=== PATIENT | male | born 1960 | race Caucasian/White ===

== ENCOUNTER → 2016-09-01 | Outpatient (CLI) | payer BC ==
--- NOTE | 2016-09-02 07:34 | XR ---
EXAMINATION TYPE: XR abdomen 2V DATE OF EXAM: 09/01/2016 1:28 PM CLINICAL HISTORY: Diarrhea and abdominal pain for one week. TECHNIQUE: Supine and upright views of the abdomen are obtained. COMPARISON: CT abdomen and pelvis January 20, 2015 FINDINGS: Scattered gas is seen in non-distended small bowel loops. Gas and fecal material is seen in non-distended colon. Scattered pelvic phleboliths are redemonstrated. Cholecystectomy clips are ag ain seen. There is no pneumoperitoneum identified. Lung bases are clear. Visualized osseous structure s are intact. IMPRESSION: Overall nonobstructive bowel gas pattern.
== END | disposition home or self-care (01) ==
LOC: RADXRYALE 11:19
PROVIDERS: ATTEND Physician Assistant Medical
DX: R19.7 Diarrhea, unspecified (principal); R11.0 Nausea
CPT/HCPCS: 74020

== ENCOUNTER → 2018-06-28 | Outpatient (CLI) | payer MEDICARE ==
--- NOTE | 2018-06-28 11:43 | US ---
EXAMINATION TYPE: US scrotum with doppler. TECHNIQUE: Grayscale and color Doppler Duplex imaging performed of the scrotum. DATE OF EXAM: 06/28/2018 COMPARISON: 11/26/2014 CLINICAL HISTORY: 58-year-old male [id number] LT TESTICULAR PAIN. Left testicle pain x 4 years. FINDINGS: EXAM MEASUREMENTS: TESTICLES: Right Testicle: 4.3 x 2.8 x 2.2 cm Left Testicle: 3.9 x 2.4 x 2.1 cm EPIDIDYMIS HEAD: Right Epididymis: 1.5 cm with a 6 mm cyst within Left Epididymis: 1.1 cm Doppler performed to assess for testicular vascularity; good bilateral color flow and waveforms are s een. There is no evidence of testicular torsion. Presence of hydroceles: mild bilaterally Presence of varicoceles: Yes, small on the left IMPRESSION: 1. No sonographic evidence for testicular torsion or epididymoorchitis. 2. Small bilateral hydroceles and a small varicocele on the left.
== END | disposition home or self-care (01) ==
LOC: RADUSWWP 10:34
PROVIDERS: ATTEND Family Medicine
DX: N43.3 Hydrocele, unspecified (principal); I86.1 Scrotal varices
CPT/HCPCS: 76870; 93975

== ENCOUNTER → 2019-02-20 | Outpatient (CLI) | payer MEDICARE ==
--- NOTE | 2019-02-20 14:39 | XR ---
EXAMINATION TYPE: XR knee complete RT DATE OF EXAM: 02/20/2019 CLINICAL HISTORY: Intermittent chronic right knee pain with no known injury. TECHNIQUE: Three views of the right knee are obtained. COMPARISON: None. FINDINGS: There is no acute fracture/dislocation evident in right knee. The tri-compartment joint s paces appear aligned with small marginal osteophytes of all 3 compartments and mild medial compartmen t joint space narrowing. And very small suprapatellar joint effusion. The overlying soft tissue appea rs unremarkable. Extensor mechanism appears intact radiographically IMPRESSION: There is no acute fracture or dislocation in the right knee. Mild tricompartmental arthr opathy and small suprapatellar joint effusion.
== END | disposition home or self-care (01) ==
LOC: RADXRYALE 13:54
PROVIDERS: ATTEND Physician Assistant Medical
DX: M17.11 Unilateral primary osteoarthritis, right knee (principal)

== ENCOUNTER 2019-06-13 02:58 | Emergency (ER) | payer MEDICARE ==
[2019-06-13 03:09] VITALS: RESP 18; TEMP 97.7
[2019-06-13] MEDS ORDERED: FAMOTIDINE 20 MG/2 ML VIAL IV STA (03:28)
[2019-06-13] MEDS ORDERED: methylPREDNISolone SOD SUCCI 125 MG/2 ML VIAL IV STA (03:28)
[2019-06-13] MEDS ORDERED: diphenhydrAMINE 50 MG/ML 1 ML VIAL IVP STA (03:28)
[2019-06-13] MEDS ORDERED: ONDANSETRON 4 MG/2 ML VIAL IVP STA (03:29)
[2019-06-13] MEDS ORDERED: MORPHINE SULFATE 4 MG/ML SYRINGE IVP STA (03:29)
[2019-06-13 03:40] LABS: Basophils # (A) 0.1 k/uL (0-0.2); Basophils % (A) 1 %; Eosinophils # (A) 0.3 k/uL (0-0.7); Eosinophils % (A) 2 %; HCT 46.2 % (39.0-53.0); HGB 15.2 gm/dL (13.0-17.5); Lymphocytes # (A) 0.7 k/uL (1.0-4.8); Lymphocytes % (A) 6 %; MCH 29.4 pg (25.0-35.0); MCHC 32.8 g/dL (31.0-37.0); MCV 89.5 fL (80.0-100.0); Monocytes # (A) 0.5 k/uL (0-1.0); Monocytes % (A) 4 %; Neutrophils # (A) 10.3 k/uL (1.3-7.7); Neutrophils % (A) 86 %; Platelet Count 187 k/uL (150-450); RBC 5.16 m/uL (4.30-5.90); RDW 13.1 % (11.5-15.5); WBC 11.9 k/uL (3.8-10.6)
--- NOTE | 2019-06-13 03:44 | ED ---
General Adult HPI - General Chief complaint: Abdominal Pain Stated complaint: abd pain Time Seen by Provider: 06/13/19 03:16 Source: patient, RN notes reviewed Mode of arrival: ambulatory Limitations: no limitations - History of Present Illness Initial comments: 59-year-old male presents for evaluation of lower abdominal pain. Patient has previous history of diverticulitis and perforated bowel status post colostomy. He is subsequently had reversal of his colostomy. He presents today with increased number of bowel movements as well as nausea and vomiting. Several episodes of vomiting prior to arrival. Reports subjective fever and chills. Pain predominantly in the left lower quadrant. Patient is concern for recurrent diverticulitis. Denies chest pain or dyspnea. Does report some abdominal distention. - Related Data Home Medications Medication Instructions Recorded Confirmed Omeprazole [PriLOSEC] 40 mg PO DAILY 06/17/14 01/20/15 Aspirin EC [Ecotrin Low Dose] 81 mg PO DAILY 09/27/14 01/20/15 Metoprolol Tartrate [Lopressor] 12.5 mg PO BID 10/28/14 01/20/15 Ramipril [Altace] 10 mg PO DAILY 01/20/15 01/20/15 Previous Rx's Medication Instructions Recorded Ciprofloxacin HCl [Cipro] 500 mg PO Q12HR #14 tablet 01/20/15 metroNIDAZOLE [Flagyl] 500 mg PO BID #20 tab 01/20/15 Levofloxacin [Levaquin] 500 mg PO DAILY 3 Days #7 tab 06/13/19 metroNIDAZOLE [Flagyl] 500 mg PO TID #21 tab 06/13/19 Allergies Allergy/AdvReac Type Severity Reaction Status Date / Time Iodinated Contrast Media Allergy Rash/Hives Verified 01/20/15 10:43 [Iodinated Contrast Media - FROM CAT IV Dye] SCAN CONTRAST. sulfamethoxazole Allergy Swelling Verified 01/20/15 10:43 [From Bactrim] trimethoprim [From Bactrim] Allergy Swelling Verified 01/20/15 10:43 Review of Systems ROS Statement: Those systems with pertinent positive or pertinent negative responses have been documented in the HPI. ROS Other: All systems not noted in ROS Statement are negative. Past Medical History Past Medical History: CVA/TIA, GERD/Reflux, Hypertension, Syncope Additional Past Medical History / Comment(s): PICC line, peforated divericulitis with abdominal abscess, sepsis, arthritis. History of Any Multi-Drug Resistant Organisms: None Reported Past Surgical History: Cholecystectomy Additional Past Surgical History / Comment(s): sigmoid colectomy with colostomy- 10/24/14 colostomy reversal, anal fissure repair, nasal polyps removed, colon polyps, diverticultis Past Anesthesia/Blood Transfusion Reactions: Motion Sickness Additional Past Anesthesia/Blood Transfusion Reaction / Comment(s): SPINAL HEADACHE IN PAST Past Psychological History: No Psychological Hx Reported Smoking Status: Former smoker Past Alcohol Use History: None Reported Past Drug Use History: None Reported - Past Family History Father Family Medical History: Hyperlipidemia, Myocardial Infarction ([place]) Additional Family Medical History / Comment(s): 5 VESSEL [employer]PASS Mother Family Medical History: Hypertension Additional Family Medical History / Comment(s): OBESITY Brother(s) Family Medical History: Hypertension Additional Family Medical History / Comment(s): cardiac sx General Exam Limitations: no limitations General appearance: alert, in no apparent distress Head exam: Present: atraumatic, normocephalic Eye exam: Present: normal appearance, PERRL ENT exam: Present: mucous membranes dry Neck exam: Present: normal inspection. Absent: tenderness, meningismus Respiratory exam: Present: normal lung sounds bilaterally. Absent: respiratory distress, wheezes Cardiovascular Exam: Present: regular rate, normal rhythm GI/Abdominal exam: Present: soft, distended, tenderness (bilateral lower abdominal tenderness to palpation). Absent: guarding, rebound Extremities exam: Present: normal inspection, normal capillary refill. Absent: pedal edema Neurological exam: Present: alert, oriented X3, CN II-XII intact. Absent: motor sensory deficit Psychiatric exam: Present: normal affect, normal mood Skin exam: Present: warm, dry, intact. Absent: cyanosis, diaphoretic Course Vital Signs 06/13/19 03:05 Temperature 97.7 F Pulse Rate 89 Respiratory 18 Rate Blood Pressure 125/86 O2 Sat by Pulse 98 Oximetry Medical Decision Making - Medical Decision Making 59-year-old male presenting with left lower quadrant abdominal pain, concern for diverticulitis. CT is performed which shows diverticulitis with no abscess, no intraperitoneal free air, no small bowel obstruction. He has a mildly elevated white blood cell count 11.0, normal CMP, normal lactic acid. Given the patient's previous surgical history, occasions with diverticulitis I did offer observation for IV antibiotics, patient declines she prefers oral antibiotics and will return if symptoms worsen including the development of fever or worsening pain. He is given a dose of antibiotics in the emergency department. He will have prescription for Levaquin and Flagyl and he will follow-up with both his primary care physician and his surgeon. - Lab Data Result diagrams: 06/13/19 03:20 06/13/19 03:20 Lab Results 06/13/19 06/13/19 06/13/19 Range/Units 03:20 03:20 03:20 WBC 11.9 H (3.8-10.6) k/uL RBC 5.16 (4.30-5.90) m/uL Hgb 15.2 (13.0-17.5) gm/dL Hct 46.2 (39.0-53.0) % MCV 89.5 (80.0-100.0) fL MCH 29.4 (25.0-35.0) pg MCHC 32.8 (31.0-37.0) g/dL RDW 13.1 (11.5-15.5) % Plt Count 187 (150-450) k/uL Neutrophils % 86 % Lymphocytes % 6 % Monocytes % 4 % Eosinophils % 2 % Basophils % 1 % Neutrophils # 10.3 H (1.3-7.7) k/uL Lymphocytes # 0.7 L (1.0-4.8) k/uL Monocytes # 0.5 (0-1.0) k/uL Eosinophils # 0.3 (0-0.7) k/uL Basophils # 0.1 (0-0.2) k/uL PT (9.0-12.0) sec INR (<1.2) APTT (22.0-30.0) sec Sodium 136 L (137-145) mmol/L Potassium 4.4 (3.5-5.1) mmol/L Chloride 103 (98-107) mmol/L Carbon Dioxide 24 (22-30) mmol/L Anion Gap 9 mmol/L BUN 12 (9-20) mg/dL Creatinine 1.20 (0.66-1.25) mg/dL Est GFR (CKD-EPI)AfAm 76 (>60 ml/min/1.73 sqM) Est GFR (CKD-EPI)NonAf 66 (>60 ml/min/1.73 sqM) Glucose 132 H (74-99) mg/dL Plasma Lactic Acid Juanito 1.0 (0.7-2.0) mmol/L Calcium 9.6 (8.4-10.2) mg/dL Total Bilirubin 1.1 (0.2-1.3) mg/dL AST 42 (17-59) U/L ALT 57 H (4-49) U/L Alkaline Phosphatase 102 (38-126) U/L Total Protein 7.5 (6.3-8.2) g/dL Albumin 4.5 (3.5-5.0) g/dL Amylase 50 (30-110) U/L Lipase 60 (23-300) U/L Urine Color Urine Appearance (Clear) Urine pH (5.0-8.0) Ur Specific [place] (1.001-1.035) Urine Protein (Negative) Urine Glucose (UA) (Negative) Urine Ketones (Negative) Urine Blood (Negative) Urine Nitrite (Negative) Urine Bilirubin (Negative) Urine Urobilinogen (<2.0) mg/dL Ur Leukocyte Esterase (Negative) 06/13/19 06/13/19 Range/Units 03:20 03:38 WBC (3.8-10.6) k/uL RBC (4.30-5.90) m/uL Hgb (13.0-17.5) gm/dL Hct (39.0-53.0) % MCV (80.0-100.0) fL MCH (25.0-35.0) pg MCHC (31.0-37.0) g/dL RDW (11.5-15.5) % Plt Count (150-450) k/uL Neutrophils % % Lymphocytes % % Monocytes % % Eosinophils % % Basophils % % Neutrophils # (1.3-7.7) k/uL Lymphocytes # (1.0-4.8) k/uL Monocytes # (0-1.0) k/uL Eosinophils # (0-0.7) k/uL Basophils # (0-0.2) k/uL PT 9.9 (9.0-12.0) sec INR 0.9 (<1.2) APTT 25.1 (22.0-30.0) sec Sodium (137-145) mmol/L Potassium (3.5-5.1) mmol/L Chloride (98-107) mmol/L Carbon Dioxide (22-30) mmol/L Anion Gap mmol/L BUN (9-20) mg/dL Creatinine (0.66-1.25) mg/dL Est GFR (CKD-EPI)AfAm (>60 ml/min/1.73 sqM) Est GFR (CKD-EPI)NonAf (>60 ml/min/1.73 sqM) Glucose (74-99) mg/dL Plasma Lactic Acid [place] (0.7-2.0) mmol/L Calcium (8.4-10.2) mg/dL Total Bilirubin (0.2-1.3) mg/dL AST (17-59) U/L ALT (4-49) U/L Alkaline Phosphatase (38-126) U/L Total Protein (6.3-8.2) g/dL Albumin (3.5-5.0) g/dL Amylase (30-110) U/L Lipase (23-300) U/L Urine Color Yellow Urine Appearance Clear (Clear) Urine pH 5.5 (5.0-8.0) Ur Specific [place] 1.025 (1.001-1.035) Urine Protein Trace H (Negative) Urine Glucose (UA) Negative (Negative) Urine Ketones 1+ H (Negative) Urine Blood Negative (Negative) Urine Nitrite Negative (Negative) Urine Bilirubin Negative (Negative) Urine Urobilinogen <2.0 (<2.0) mg/dL Ur Leukocyte Esterase Negative (Negative) Disposition Clinical Impression: Diverticulitis Disposition: HOME SELF-CARE Condition: Good Instructions (If sedation given, give patient instructions): Diverticulitis (ED) Prescriptions: metroNIDAZOLE [Flagyl] 500 mg PO TID #21 tab Levofloxacin [Levaquin] 500 mg PO DAILY 3 Days #7 tab Is patient prescribed a controlled substance at d/c from ED?: No Referrals: Robert Goldstein DO [Primary Care Provider] - 1-2 days Chanel Harper MD [STAFF PHYSICIAN] - 1-2 days Time of Disposition: 04:24
[2019-06-13 03:45] LABS: Appearance,Urine Clear (Clear); Bilirubin,Urine Negative (Negative); Blood,Urine Negative (Negative); Color,Urine Yellow; Glucose,Urine (UA) Negative (Negative); Ketones,Urine 1+ (Negative); Leukocyte Esterase,Urine Negative (Negative); Nitrite,Urine Negative (Negative); PH, Urine 5.5 (5.0-8.0); Protein,Urine Trace (Negative); Specific Gravity,Urine 1.025 (1.001-1.035); Urobilinogen,Urine <2.0 mg/dL (<2.0)
[2019-06-13 03:49] LABS: Albumin 4.5 g/dL (3.5-5.0); Calcium 9.6 mg/dL (8.4-10.2); Potassium 4.4 mmol/L (3.5-5.1); Total Bilirubin 1.1 mg/dL (0.2-1.3); Total Protein 7.5 g/dL (6.3-8.2)
[2019-06-13 03:51] LABS: INR 0.9 (<1.2); Partial Thromboplastin Time 25.1 sec (22.0-30.0); Prothrombin Time 9.9 sec (9.0-12.0)
--- NOTE | 2019-06-13 04:13 | CT ---
EXAMINATION TYPE: CT abdomen pelvis w con DATE OF EXAM: 06/13/2019 COMPARISON: 01/20/2015 HISTORY: Patient presents with abdominal pain CT DLP: 1416.8 mGycm Automated exposure control for dose reduction was used. CONTRAST: Performed with IV Contrast, patient injected with 100mL mL of Isovue 300. Lung bases are clear. There is no pleural effusion. Heart size is normal. There is no pericardial eff usion. Liver spleen pancreas appear normal. Bile ducts are not dilated. There are clips from cholecys tectomy. Stomach appears normal. There is no adrenal mass. Kidneys show satisfactory contrast opacification. There is no hydronephrosi s. Ureters are not dilated. Bladder distends smoothly. There is prostatic calcification. There is no inguinal hernia. There is no free fluid in the pelvis. There is moderate fat stranding and mild wall thickening of the proximal sigmoid colon. There are sig moid diverticula. Appendix appears normal. There is no sign of a bowel obstruction. There is no free air. There is no ascites. Lumbar spine is intact. Bony pelvis is intact. IMPRESSION: There is evidence of diverticulitis of the proximal sigmoid colon that is a change compared to old ex am. No abscess.
[2019-06-13] MEDS ORDERED: metroNIDAZOLE-NS PMX 500 MG in SALINE 1 100ML.BAG IVPB STA (04:21)
[2019-06-13] MEDS ORDERED: LEVOFLOXACIN 500MG-D5W PMX 500 MG in DEXTROSE/WATER 1 100ML.BAG IVPB STA (04:21)
[2019-06-13] MEDS ORDERED: metroNIDAZOLE 500 MG TAB PO STA (04:26)
[2019-06-13] MEDS ORDERED: LEVOFLOXACIN 500 MG TAB PO STA (04:26)
[2019-06-13 04:40] VITALS: BP 119/81; PULSE 76
== END 2019-06-13 04:40 | disposition home or self-care (01) ==
LOC: EC 02:58
DX: K57.32 Diverticulitis of large intestine without perforation or abscess without bleeding (principal); K21.9 Gastro-esophageal reflux disease without esophagitis; I10 Essential (primary) hypertension; Z79.82 Long term (current) use of aspirin; Z79.899 Other long term (current) drug therapy; Z88.1 Allergy status to other antibiotic agents; Z88.2 Allergy status to sulfonamides; Z91.041 Radiographic dye allergy status; Z87.891 Personal history of nicotine dependence; Z86.73 Personal history of transient ischemic attack (TIA), and cerebral infarction without residual deficits; Z90.49 Acquired absence of other specified parts of digestive tract
CPT/HCPCS: 36415; 80053; 82150; 83605; 83690; 85025; 85610; 85730; 81003; 74177; 99284; 96374; 96375 ×4; J2270; J1200; J2930; J2405; Q9967

== ENCOUNTER 2020-09-03 12:35 | Emergency (ER) | payer MEDICARE ==
[2020-09-03 12:46] VITALS: BP 135/103; PULSE 94; RESP 16; TEMP 98.1
[2020-09-03 13:21] LABS: Basophils # (A) 0.1 k/uL (0-0.2); Basophils % (A) 1 %; Eosinophils # (A) 0.2 k/uL (0-0.7); Eosinophils % (A) 2 %; HCT 44.8 % (39.0-53.0); HGB 15.6 gm/dL (13.0-17.5); Lymphocytes % (A) 15 %; MCH 30.2 pg (25.0-35.0); MCHC 34.8 g/dL (31.0-37.0); MCV 86.7 fL (80.0-100.0); Mean Platelet Volume 9.2; Monocytes # (A) 0.4 k/uL (0-1.0); Monocytes % (A) 7 %; Neutrophils # (A) 4.9 k/uL (1.3-7.7); Neutrophils % (A) 75 %; Platelet Count 189 k/uL (150-450); RBC 5.17 m/uL (4.30-5.90); WBC 6.6 k/uL (3.8-10.6)
[2020-09-03 13:35] LABS: Albumin 4.3 g/dL (3.5-5.0); Calcium 9.4 mg/dL (8.4-10.2); Total Bilirubin 0.9 mg/dL (0.2-1.3); Total Protein 7.1 g/dL (6.3-8.2)
[2020-09-03 13:52] LABS: INR 0.9 (<1.2); Partial Thromboplastin Time 24.5 sec (22.0-30.0); Prothrombin Time 9.9 sec (9.0-12.0)
== END 2020-09-03 14:16 | disposition left against medical advice (07) ==
LOC: EC 12:35
DX: R07.9 Chest pain, unspecified (principal); R42 Dizziness and giddiness; Z53.21 Procedure and treatment not carried out due to patient leaving prior to being seen by health care provider
CPT/HCPCS: 36415; 80053; 83735; 84484; 85025; 85610; 85730; 93005; 99499

== ENCOUNTER 2021-09-04 14:30 | Emergency (ER) | payer MEDICARE ==
[2021-09-04 14:42] VITALS: BP 166/96; PULSE 88; RESP 20; TEMP 98
[2021-09-04 15:46] LABS: Appearance,Urine Clear (Clear); Basophils % (A) 1 %; Bilirubin,Urine Negative (Negative); Blood,Urine Negative (Negative); Color,Urine Light Yellow; Eosinophils # (A) 0.3 k/uL (0-0.7); Eosinophils % (A) 4 %; Glucose,Urine (UA) Negative (Negative); HCT 46.2 % (39.0-53.0); HGB 15.5 gm/dL (13.0-17.5); Ketones,Urine Negative (Negative); Leukocyte Esterase,Urine Negative (Negative); Lymphocytes # (A) 1.6 k/uL (1.0-4.8); Lymphocytes % (A) 25 %; MCH 30.3 pg (25.0-35.0); MCHC 33.6 g/dL (31.0-37.0); MCV 90.2 fL (80.0-100.0); Monocytes # (A) 0.4 k/uL (0-1.0); Monocytes % (A) 6 %; Neutrophils % (A) 63 %; Nitrite,Urine Negative (Negative); Platelet Count 188 k/uL (150-450); Protein,Urine Negative (Negative); RBC 5.12 m/uL (4.30-5.90); RDW 13.1 % (11.5-15.5); Specific Gravity,Urine 1.013 (1.001-1.035); Urobilinogen,Urine <2.0 mg/dL (<2.0); WBC 6.4 k/uL (3.8-10.6)
[2021-09-04 16:11] LABS: Calcium 9.1 mg/dL (8.4-10.2); Potassium 4.1 mmol/L (3.5-5.1); Total Bilirubin 0.5 mg/dL (0.2-1.3); Total Protein 6.8 g/dL (6.3-8.2)
--- NOTE | 2021-09-04 16:13 | ED ---
Abdominal Pain HPI - General Chief Complaint: Abdominal Pain Stated Complaint: Lower Abdominal Pain Time Seen by Provider: 09/04/21 14:58 Source: patient, RN notes reviewed Mode of arrival: ambulatory Limitations: no limitations - History of Present Illness Initial Comments: This is a 61-year-old male who presents to the emergency department with abdomin al pain. States that he woke up with abdominal pain in the right lower quadrant. He has been unable to get comfortable, states that the pain is getting worse, and whenever he bumps into something or drives over a bump, the pain gets worse. Denies any migration or radiation of symptoms. He has not found any interventions that make the pain better. Denies any dysuria, hematuria, changes in bowel habits, nausea, vomiting, fevers, or chills. MD Complaint: abdominal pain Onset/Timin -: days(s) Location: RLQ Radiation: none Migration to: no migration Quality: stabbing, sharp Consistency: constant Improves With: nothing Worsens With: movement - Related Data Home Medications Medication Instructions Recorded Confirmed Ramipril [Altace] 10 mg PO DAILY 01/20/15 09/04/21 Allergies Allergy/AdvReac Type Severity Reaction Status Date / Time Iodinated Contrast Media Allergy Rash/Hives Verified 09/04/21 17:33 [Iodinated Contrast Media - & Fever IV Dye] sulfamethoxazole Allergy Rash/Hives Verified 09/04/21 17:33 [From Bactrim] trimethoprim [From Bactrim] Allergy Rash/Hives Verified 09/04/21 17:33 Review of Systems ROS Statement: Those systems with pertinent positive or pertinent negative responses have been documented in the HPI. ROS Other: All systems not noted in ROS Statement are negative. Constitutional: Denies: fever, chills ENT: Denies: ear pain, throat pain Respiratory: Denies: cough, dyspnea Cardiovascular: Denies: chest pain, palpitations Endocrine: Denies: fatigue Gastrointestinal: Reports: abdominal pain. Denies: nausea, vomiting, diarrhea, hematemesis, melena, hematochezia Genitourinary: Denies: urgency, dysuria, frequency, hematuria Musculoskeletal: Denies: back pain Skin: Denies: rash, lesions Neurological: Denies: headache Past Medical History Past Medical History: CVA/TIA, GERD/Reflux, Hypertension, Syncope Additional Past Medical History / Comment(s): PICC line, peforated divericulitis with abdominal abscess, sepsis, arthritis. History of Any Multi-Drug Resistant Organisms: None Reported Past Surgical History: Cholecystectomy Additional Past Surgical History / Comment(s): sigmoid colectomy with colostomy- 10/24/14 colostomy reversal, anal fissure repair, nasal polyps removed, colon polyps, diverticultis Past Anesthesia/Blood Transfusion Reactions: Motion Sickness Additional Past Anesthesia/Blood Transfusion Reaction / Comment(s): SPINAL HEADACHE IN PAST Past Psychological History: No Psychological Hx Reported Smoking Status: Never smoker Past Alcohol Use History: None Reported Past Drug Use History: Marijuana - Past Family History Father Family Medical History: Hyperlipidemia, Myocardial Infarction ([place]) Additional Family Medical History / Comment(s): 5 VESSEL [employer]PASS Mother Family Medical History: Hypertension Additional Family Medical History / Comment(s): OBESITY Brother(s) Family Medical History: Hypertension Additional Family Medical History / Comment(s): cardiac sx General Exam Limitations: no limitations General appearance: alert, in no apparent distress Head exam: Present: atraumatic, normocephalic, normal inspection Respiratory exam: Present: normal lung sounds bilaterally. Absent: respiratory distress, wheezes, rales, rhonchi, stridor Cardiovascular Exam: Present: regular rate, normal rhythm, normal heart sounds. Absent: systolic murmur, diastolic murmur, rubs, gallop, clicks GI/Abdominal exam: Present: soft, tenderness (RLQ), guarding, normal bowel sounds. Absent: distended, rebound, rigid, organomegaly, mass Neurological exam: Present: alert, oriented X3, CN II-XII intact Psychiatric exam: Present: normal affect, normal mood Skin exam: Present: warm, dry, intact, normal color. Absent: rash Course Vital Signs 09/04/21 14:40 Temperature 98.0 F Pulse Rate 88 Respiratory 20 Rate Blood Pressure 166/96 O2 Sat by Pulse 98 Oximetry Medical Decision Making - Medical Decision Making This is a 61-year-old male who presents to the emergency department with abdominal pain. Given the exquisite tenderness, history of bowel pathology, and sudden onset tenderness, will proceed with imaging and labs for further evalu ation. Lab work and urinalysis were unremarkable with no sign of infection. Computed tomography scan also revealed no acute pathology. Discussed that this might be musculoskeletal in nature, and it should resolve on its own. Workup does not reveal any etiologies that require emergent intervention on our part. Advised Tylenol for pain relief. Return precautions reviewed in depth, the patient is instructed to return to the emergency department if symptoms worsen or do not improve. Patient verbalized understanding. This case was discussed in detail with the attending ED physician. Presentation, findings, and treatment plan discussed in detail as well. - Lab Data Result diagrams: 09/04/21 15:26 09/04/21 15: Lab Results 09/04/21 09/04/21 09/04/21 Range/Units 15:26 15: 15:26 WBC 6.4 (3.8-10.6) k/uL RBC 5.12 (4.30-5.90) m/uL Hgb 15.5 (13.0-17.5) gm/dL Hct 46.2 (39.0-53.0) % MCV 90.2 (80.0-100.0) fL MCH 30.3 (25.0-35.0) pg MCHC 33.6 (31.0-37.0) g/dL RDW 13.1 (11.5-15.5) % Plt Count 188 (150-450) k/uL MPV 9.0 Neutrophils % 63 % Lymphocytes % 25 % Monocytes % 6 % Eosinophils % 4 % Basophils % 1 % Neutrophils # 4.0 (1.3-7.7) k/uL Lymphocytes # 1.6 (1.0-4.8) k/uL Monocytes # 0.4 (0-1.0) k/uL Eosinophils # 0.3 (0-0.7) k/uL Basophils # 0.0 (0-0.2) k/uL Sodium 138 (137-145) mmol/L Potassium 4.1 (3.5-5.1) mmol/L Chloride 106 (98-107) mmol/L Carbon Dioxide 25 (22-30) mmol/L Anion Gap 7 mmol/L BUN 19 (9-20) mg/dL Creatinine 1.15 (0.66-1.25) mg/dL Est GFR (CKD-EPI)AfAm 80 (>60 ml/min/1.73 sqM) Est GFR (CKD-EPI)NonAf 69 (>60 ml/min/1.73 sqM) Glucose 93 (74-99) mg/dL Calcium 9.1 (8.4-10.2) mg/dL Total Bilirubin 0.5 (0.2-1.3) mg/dL AST 27 (17-59) U/L ALT 35 (4-49) U/L Alkaline Phosphatase 65 (38-126) U/L Total Protein 6.8 (6.3-8.2) g/dL Albumin 4.0 (3.5-5.0) g/dL Amylase 73 (30-110) U/L Lipase 54 (23-300) U/L Urine Color Light Yellow Urine Appearance Clear (Clear) Urine pH 7.0 (5.0-8.0) Ur Specific [place] 1.013 (1.001-1.035) Urine Protein Negative (Negative) Urine Glucose (UA) Negative (Negative) Urine Ketones Negative (Negative) Urine Blood Negative (Negative) Urine Nitrite Negative (Negative) Urine Bilirubin Negative (Negative) Urine Urobilinogen <2.0 (<2.0) mg/dL Ur Leukocyte Esterase Negative (Negative) - Radiology Data Radiology results: report reviewed, image reviewed Disposition Clinical Impression: RLQ abdominal pain Disposition: HOME SELF-CARE Instructions (If sedation given, give patient instructions): Abdominal Pain (ED) Additional Instructions: Return to the emergency department if your symptoms worsen or you develop symptoms including but not limited to nausea/vomiting, fevers/chills, or changes in bowel habits. Follow-up with primary care physician in 1 to 2 days. Is patient prescribed a controlled substance at d/c from ED?: No Referrals: Robert Goldstein DO [Primary Care Provider] - 1-2 days
--- NOTE | 2021-09-04 16:39 | CT ---
EXAMINATION TYPE: CT abdomen pelvis wo con DATE OF EXAM: 09/04/2021 COMPARISON: CT dated 06/13/2019 HISTORY: Abdominal pain since this morning. CT DLP: 917.6 mGycm Automated exposure control for dose reduction was used. TECHNIQUE: Helical acquisition of images was performed from the lung bases through the pelvis. FINDINGS: LUNG BASES: Minimal left basal posterior pulmonary atelectasis. LIVER/GB: Tiny calcification in the left hepatic lobe, otherwise unremarkable liver. Previous cholecy stectomy. PANCREAS: No significant abnormality is seen. SPLEEN: No significant abnormality is seen. ADRENALS: No significant abnormality is seen. KIDNEYS: No significant abnormality is seen. FREE AIR: No free air is visualized RETROPERITONEAL ADENOPATHY: None visualized REPRODUCTIVE ORGANS: No significant abnormality is seen URINARY BLADDER: No significant abnormality is seen. PELVIC ADENOPATHY: None visualized. OSSEOUS STRUCTURES: L4-5 and L5-S1 facet osteoarthropathy. No aggressive bone lesion. BOWEL: Unremarkable stomach, duodenum and small bowel. Unremarkable colonic anastomosis in the pelvi s. Fatty infiltration of segments of the colon which could be related to chronic colitis. Uncomplicat ed colonic diverticulosis. No evidence of acute diverticulitis or acute colitis. Normal appendix. OTHER: Minimal arterial atherosclerotic calcifications. No sizable ascites. Left fat-containing ingui nal hernia. IMPRESSION: No definite acute abnormality seen in the abdomen or the pelvis. Incidental findings as described abo ve.
== END 2021-09-04 17:51 | disposition home or self-care (01) ==
LOC: EC 14:30
DX: R10.31 Right lower quadrant pain (principal); I10 Essential (primary) hypertension; K21.9 Gastro-esophageal reflux disease without esophagitis; F12.90 Cannabis use, unspecified, uncomplicated; Z79.899 Other long term (current) drug therapy
CPT/HCPCS: 36415; 74176; 80053; 81003; 82150; 83690; 85025; 99284

== ENCOUNTER 2021-12-31 20:27 | Emergency (ER) | payer MEDICARE ==
[2021-12-31] MEDS ORDERED: FLUORESCEIN STRIPS 1 MG STRIP RIGHT EYE ONE (21:33)
[2021-12-31] MEDS ORDERED: PROPARACAINE 0.5% OPHTH DROPS 15 ML BTL RIGHT EYE STA (21:33)
[2021-12-31 21:36] VITALS: BP 171/95; PULSE 75; RESP 18; TEMP 97.8
[2021-12-31] MEDS ORDERED: ERYTHROMYCIN 5 MG/GM OPHTH OINT 3.5 GM TUBE LEFT EYE STA (22:22)
--- NOTE | 2021-12-31 22:30 | ED ---
General Adult HPI - General Chief complaint: Eye Problems Stated complaint: Foreign object stuck on R eye Time Seen by Provider: 12/31/21 21:32 Source: patient, family, RN notes reviewed (FB in left eye) Mode of arrival: ambulatory - History of Present Illness Initial comments: 61-year-old male presents to the emergency department with complaints of metal foreign body in the left eye. Patient states he was working on his truck around 3 PM when a maribell of metal dropped in his eye over his shield and glasses. Patient states the irritation is constant. States he attempted to move the object at home without success. Does not wear contacts. No blurry vision. Tetanus shot is up to date. Denies any other injuries at this time. - Related Data Home Medications Medication Instructions Recorded Confirmed ramipriL [Altace] 10 mg PO DAILY 01/20/15 09/04/21 Previous Rx's Medication Instructions Recorded Ciprofloxacin Ophth Soln [Cipro 2 drops LEFT EYE Q6HR 3 Days #5 ml 12/31/21 0.3% Ophth Soln] Allergies Allergy/AdvReac Type Severity Reaction Status Date / Time Iodinated Contrast Media Allergy Rash/Hives Verified 12/31/21 21:36 [Iodinated Contrast Media - & Fever IV Dye] sulfamethoxazole Allergy Rash/Hives Verified 12/31/21 21:36 [From Bactrim] trimethoprim [From Bactrim] Allergy Rash/Hives Verified 12/31/21 21:36 Review of Systems ROS Statement: Those systems with pertinent positive or pertinent negative responses have been documented in the HPI. ROS Other: All systems not noted in ROS Statement are negative. Past Medical History Past Medical History: CVA/TIA, GERD/Reflux, Hypertension, Syncope Additional Past Medical History / Comment(s): PICC line, peforated divericulitis with abdominal abscess, sepsis, arthritis. History of Any Multi-Drug Resistant Organisms: None Reported Past Surgical History: Cholecystectomy Additional Past Surgical History / Comment(s): sigmoid colectomy with colostomy- 10/24/14 colostomy reversal, anal fissure repair, nasal polyps removed, colon polyps, diverticultis Past Anesthesia/Blood Transfusion Reactions: Motion Sickness Additional Past Anesthesia/Blood Transfusion Reaction / Comment(s): SPINAL HEADACHE IN PAST Past Psychological History: No Psychological Hx Reported Smoking Status: Never smoker Past Alcohol Use History: None Reported Past Drug Use History: Marijuana - Past Family History Father Family Medical History: Hyperlipidemia, Myocardial Infarction ([place]) Additional Family Medical History / Comment(s): 5 VESSEL [employer]PASS Mother Family Medical History: Hypertension Additional Family Medical History / Comment(s): OBESITY Brother(s) Family Medical History: Hypertension Additional Family Medical History / Comment(s): cardiac sx General Exam Limitations: no limitations (Pleasant, well-developed, well-nourished male in no acute distress. Initial temperature is 97.8, pulse 75, respirations 18, blood pressure 171/95, pulse ox 98% on room air.) General appearance: alert, in no apparent distress Head exam: Present: atraumatic, normocephalic, normal inspection Eye exam: Present: normal appearance, PERRL, EOMI, conjunctival injection. Absent: scleral icterus Expanded Eyelids: Normal Inspection: Bilateral Pupils: Regular, Round: Bilateral Sclera/Conjunctival: Normal Inspection: Right, Injection: Left IOP (R) in mmH IOP (L) in mmH Respiratory exam: Present: normal lung sounds bilaterally. Absent: respiratory distress, wheezes, rales, rhonchi, stridor Cardiovascular Exam: Present: regular rate, normal rhythm, normal heart sounds. Absent: systolic murmur, diastolic murmur, rubs, gallop, clicks GI/Abdominal exam: Present: soft, normal bowel sounds. Absent: distended, tenderness, guarding, rebound, rigid Neurological exam: Present: alert, oriented X3 Psychiatric exam: Present: normal affect, normal mood Course Vital Signs 12/31/21 21:31 Temperature 97.8 F Pulse Rate 75 Respiratory 18 Rate Blood Pressure 171/95 O2 Sat by Pulse 98 Oximetry Procedures - Forgein Body Removal Eye Site: Left Location in eye(s): 2 o'clock position Anesthetic Used: Proparacaine Eye Exam Technique: Batista Lamp, Fluorescein Foreign Body Suspected: Wood Forgein Body Removal Technique: Cotton Swab Remaining Debris: No Patient Tolerated: no complications Additional Comments: Left eye examined IOP measured Proparacaine instilled into the left eye. Tiny foreign body, suspected to be metal, removed. Reexamination reveals small corneal abrasion with no evidence of foreign body. Medical Decision Making - Medical Decision Making 61-year-old male with a past medical history of of hypertension, TIA and diverticulitis presents to the emergency department for removal of small metal foreign body in the left eye. Upon exam patient is well-appearing and in no acute distress. He has conjunctival injection of the left eye with foreign body visualized under magnification at the 2 o'clock position. Patient has no other injuries or complaints. Td up-to-date. IOP within normal limits bilaterally. No significant vision change. Eye irrigated. Foreign body successfully removed with cotton swab. Small abrasion noted to the cornea after removal. Erythromycin eye ointment applied. Patient is instructed to follow up with ophthalmology first thing in the morning. He is advised to the importance of this and verbalizes understanding. Return parameters discussed in detail. Attending: Rebel. Disposition Clinical Impression: Foreign body of left eye Disposition: HOME SELF-CARE Condition: Stable Instructions (If sedation given, give patient instructions): Eye Foreign Body (ED) Additional Instructions: Avoid rubbing your left eye. Apply antibiotic ointment/drops as we discussed. Expect there to be some ongoing irritation, tearing, and sensitivity to light. Call ophthalmology first thing in the morning to schedule a follow-up appointment to be seen as soon as possible. Return to the emergency department with any new, worsening, or concerning symptoms. Prescriptions: Ciprofloxacin Ophth Soln [Cipro 0.3% Ophth Soln] 2 drops LEFT EYE Q6HR 3 Days #5 ml Is patient prescribed a controlled substance at d/c from ED?: No Referrals: Robert Goldstein DO [Primary Care Provider] - 1-2 days Simeon Srinivasan MD [STAFF PHYSICIAN] - 1-2 days Time of Disposition: 22:30
== END 2021-12-31 23:01 | disposition home or self-care (01) ==
LOC: EC 20:27
DX: T15.92XA Foreign body on external eye, part unspecified, left eye, initial encounter (principal); I10 Essential (primary) hypertension; K21.9 Gastro-esophageal reflux disease without esophagitis; Z91.041 Radiographic dye allergy status; Z88.2 Allergy status to sulfonamides; Z79.899 Other long term (current) drug therapy
CPT/HCPCS: 65205; 99283

== ENCOUNTER 2022-04-01 10:19 | Observation (INO) | payer MEDICARE ==
--- NOTE | 2022-04-01 14:47 | ED ---
General Adult HPI - General Chief complaint: Weakness Stated complaint: Hypertension Time Seen by Provider: 04/01/22 12:03 Source: patient, RN notes reviewed Mode of arrival: ambulatory Limitations: no limitations - History of Present Illness Initial comments: Patient is a pleasant [age]-year-old male presenting to the emergency department with concerns with hypertension. Patient was evaluated by practitioner at his house today with blood pressure 180/120. Patient was advised to call his doctor. Patient called his doctor and they were advising h im to come to the emergency department. Patient states overall he feels fine. Patient does admit to having mild nasal congestion and mild tightness in his chest. No dyspnea. - Related Data Home Medications Medication Instructions Recorded Confirmed ramipriL [Altace] 10 mg PO DAILY 01/20/15 04/01/22 Allergies Allergy/AdvReac Type Severity Reaction Status Date / Time Iodinated Contrast Media Allergy Rash/Hives Verified 04/01/22 12:00 [Iodinated Contrast Media - & Fever IV Dye] sulfamethoxazole Allergy Rash/Hives Verified 04/01/22 12:00 [From Bactrim] trimethoprim [From Bactrim] Allergy Rash/Hives Verified 04/01/22 12:00 Review of Systems ROS Statement: Those systems with pertinent positive or pertinent negative responses have been documented in the HPI. ROS Other: All systems not noted in ROS Statement are negative. Constitutional: Denies: fever Eyes: Denies: eye pain ENT: Reports: congestion. Denies: ear pain Respiratory: Denies: cough, dyspnea Cardiovascular: Reports: as per HPI Endocrine: Reports: fatigue Gastrointestinal: Denies: abdominal pain Genitourinary: Denies: dysuria Musculoskeletal: Denies: back pain Skin: Denies: rash Neurological: Denies: weakness Past Medical History Past Medical History: CVA/TIA, GERD/Reflux, Hypertension, Syncope Additional Past Medical History / Comment(s): PICC line, peforated divericulitis with abdominal abscess, sepsis, arthritis. History of Any Multi-Drug Resistant Organisms: None Reported Past Surgical History: Cholecystectomy Additional Past Surgical History / Comment(s): sigmoid colectomy with colostomy- 10/24/14 colostomy reversal, anal fissure repair, nasal polyps removed, colon polyps, diverticultis Past Anesthesia/Blood Transfusion Reactions: Motion Sickness Additional Past Anesthesia/Blood Transfusion Reaction / Comment(s): SPINAL HEADACHE IN PAST Past Psychological History: No Psychological Hx Reported Smoking Status: Never smoker Past Alcohol Use History: None Reported Past Drug Use History: Marijuana - Past Family History Father Family Medical History: Hyperlipidemia, Myocardial Infarction ([place]) Additional Family Medical History / Comment(s): 5 VESSEL [employer]PASS Mother Family Medical History: Hypertension Additional Family Medical History / Comment(s): OBESITY Brother(s) Family Medical History: Hypertension Additional Family Medical History / Comment(s): cardiac sx General Exam Limitations: no limitations General appearance: alert, in no apparent distress Head exam: Present: normocephalic Eye exam: Present: normal appearance ENT exam: Present: normal oropharynx Neck exam: Present: normal inspection Respiratory exam: Present: normal lung sounds bilaterally Cardiovascular Exam: Present: regular rate, normal rhythm Expanded Peripheral pulses: 2+: Radial (R), Radial (L), Dorsalis Pedis (R), Dorsalis Pedis (L) GI/Abdominal exam: Present: soft. Absent: tenderness Extremities exam: Present: normal inspection. Absent: pedal edema, calf tenderness Neurological exam: Present: alert Psychiatric exam: Present: normal affect, normal mood Skin exam: Present: normal color Course Vital Signs 04/01/22 04/01/22 11:56 15:08 Temperature 97.5 F L Pulse Rate 59 L 60 Respiratory 20 18 Rate Blood Pressure 168/97 142/90 O2 Sat by Pulse 98 98 Oximetry EKG Findings - EKG Comments: EKG Findings:: Size pericardial 55. OK 181. QRS 11. QT 417. QTC 45. Normal axis. Normal QRS. No acute ST change. Medical Decision Making - Medical Decision Making Patient reevaluated and resting comfortably in bed. Symptoms improved with Nitropaste. Patient updated on results and plan. Case discussed with Dr. Purdy, who will admit covering Dr. Fuentes id - Lab Data Result diagrams: 04/01/22 14:47 04/01/22 14:47 Lab Results 04/01/22 04/01/22 04/01/22 Range/Units 14:47 14:47 14:47 WBC 5.8 (3.8-10.6) k/uL RBC 5.03 (4.30-5.90) m/uL Hgb 14.6 (13.0-17.5) gm/dL Hct 44.9 (39.0-53.0) % MCV 89.2 (80.0-100.0) fL MCH 29.1 (25.0-35.0) pg MCHC 32.6 (31.0-37.0) g/dL RDW 12.9 (11.5-15.5) % Plt Count 182 (150-450) k/uL MPV 9.8 Neutrophils % 60 % Lymphocytes % 27 % Monocytes % 7 % Eosinophils % 4 % Basophils % 1 % Neutrophils # 3.5 (1.3-7.7) k/uL Lymphocytes # 1.6 (1.0-4.8) k/uL Monocytes # 0.4 (0-1.0) k/uL Eosinophils # 0.3 (0-0.7) k/uL Basophils # 0.0 (0-0.2) k/uL PT 10.2 (9.0-12.0) sec INR 0.9 (<1.2) APTT 24.9 (22.0-30.0) sec D-Dimer 0.37 (<0.60) mg/L FEU Sodium 138 (137-145) mmol/L Potassium 4.0 (3.5-5.1) mmol/L Chloride 106 (98-107) mmol/L Carbon Dioxide 23 (22-30) mmol/L Anion Gap 9 mmol/L BUN 16 (9-20) mg/dL Creatinine 0.98 (0.66-1.25) mg/dL Est GFR (CKD-EPI)AfAm >90 (>60 ml/min/1.73 sqM) Est GFR (CKD-EPI)NonAf 84 (>60 ml/min/1.73 sqM) Glucose 93 (74-99) mg/dL Calcium 9.2 (8.4-10.2) mg/dL Magnesium 2.1 (1.6-2.3) mg/dL Total Bilirubin 0.6 (0.2-1.3) mg/dL AST 29 (17-59) U/L ALT 32 (4-49) U/L Alkaline Phosphatase 64 (38-126) U/L Troponin I (0.000-0.034) ng/mL Total Protein 6.7 (6.3-8.2) g/dL Albumin 4.3 (3.5-5.0) g/dL Coronavirus (PCR) (Not Detectd) 04/01/22 04/01/22 Range/Units 14:47 14:47 WBC (3.8-10.6) k/uL RBC (4.30-5.90) m/uL Hgb (13.0-17.5) gm/dL Hct (39.0-53.0) % MCV (80.0-100.0) fL MCH (25.0-35.0) pg MCHC (31.0-37.0) g/dL RDW (11.5-15.5) % Plt Count (150-450) k/uL MPV Neutrophils % % Lymphocytes % % Monocytes % % Eosinophils % % Basophils % % Neutrophils # (1.3-7.7) k/uL Lymphocytes # (1.0-4.8) k/uL Monocytes # (0-1.0) k/uL Eosinophils # (0-0.7) k/uL Basophils # (0-0.2) k/uL PT (9.0-12.0) sec INR (<1.2) APTT (22.0-30.0) sec D-Dimer (<0.60) mg/L FEU Sodium (137-145) mmol/L Potassium (3.5-5.1) mmol/L Chloride (98-107) mmol/L Carbon Dioxide (22-30) mmol/L Anion Gap mmol/L BUN (9-20) mg/dL Creatinine (0.66-1.25) mg/dL Est GFR (CKD-EPI)AfAm (>60 ml/min/1.73 sqM) Est GFR (CKD-EPI)NonAf (>60 ml/min/1.73 sqM) Glucose (74-99) mg/dL Calcium (8.4-10.2) mg/dL Magnesium (1.6-2.3) mg/dL Total Bilirubin (0.2-1.3) mg/dL AST (17-59) U/L ALT (4-49) U/L Alkaline Phosphatase (38-126) U/L Troponin I <0.012 (0.000-0.034) ng/mL Total Protein (6.3-8.2) g/dL Albumin (3.5-5.0) g/dL Coronavirus (PCR) Not Detected (Not Detectd) - Radiology Data Radiology results: image reviewed Disposition Clinical Impression: Chest pain, Hypertension Disposition: ADMITTED IP TO THIS HOSP Is patient prescribed a controlled substance at d/c from ED?: No Referrals: Robert Goldstein DO [Primary Care Provider] - 1-2 days Time of Disposition: 16:04
[2022-04-01] MEDS: ASPIRIN 81 MG PO STA ×2 (14:54→14:55)
[2022-04-01] MEDS: NITROGLYCERIN OINT 1 INCH/GM PACKET TOPICAL STA ×3 (14:55→15:07)
[2022-04-01 15:05] LABS: Basophils % (A) 1 %; Eosinophils # (A) 0.3 k/uL (0-0.7); Eosinophils % (A) 4 %; HCT 44.9 % (39.0-53.0); HGB 14.6 gm/dL (13.0-17.5); Lymphocytes # (A) 1.6 k/uL (1.0-4.8); Lymphocytes % (A) 27 %; MCH 29.1 pg (25.0-35.0); MCHC 32.6 g/dL (31.0-37.0); MCV 89.2 fL (80.0-100.0); Mean Platelet Volume 9.8; Monocytes # (A) 0.4 k/uL (0-1.0); Monocytes % (A) 7 %; Neutrophils # (A) 3.5 k/uL (1.3-7.7); Neutrophils % (A) 60 %; Platelet Count 182 k/uL (150-450); RBC 5.03 m/uL (4.30-5.90); RDW 12.9 % (11.5-15.5); WBC 5.8 k/uL (3.8-10.6)
[2022-04-01 15:15] LABS: ALT 32 U/L (4-49); AST 29 U/L (17-59); African American GFR (CKD) >90 (>60 ml/min/1.73 sqM); Albumin 4.3 g/dL (3.5-5.0); Alkaline Phosphatase 64 U/L (38-126); Anion Gap 9 mmol/L; Blood Urea Nitrogen 16 mg/dL (9-20); Calcium 9.2 mg/dL (8.4-10.2); Carbon Dioxide 23 mmol/L (22-30); Chloride 106 mmol/L (98-107); Glucose 93 mg/dL (74-99); Magnesium 2.1 mg/dL (1.6-2.3); Non-African American GFR(CKD) 84 (>60 ml/min/1.73 sqM); Sodium 138 mmol/L (137-145); Total Bilirubin 0.6 mg/dL (0.2-1.3); Total Protein 6.7 g/dL (6.3-8.2)
[2022-04-01 15:18] LABS: INR 0.9 (<1.2); Partial Thromboplastin Time 24.9 sec (22.0-30.0); Prothrombin Time 10.2 sec (9.0-12.0)
--- NOTE | 2022-04-01 15:50 | XR ---
EXAMINATION TYPE: XR chest 2V DATE OF EXAM: 04/01/2022 COMPARISON: CTA chest November 17, 2014. Two view chest xray October 22, 2014 HISTORY: Chest pain. TECHNIQUE: Frontal and lateral views of the chest are obtained. FINDINGS: There is no suspicious focal air space opacity, pleural effusion, or pneumothorax seen. Ca rdiomegaly redemonstrated. The osseous structures are intact. Overlying EKG leads redemonstrated. C holecystectomy clips are noted on lateral view. IMPRESSION: Cardiomegaly without acute pulmonary process.
[2022-04-01] MEDS ORDERED: ACETAMINOPHEN TAB 325 MG TAB PO PRN (15:54)
[2022-04-01] MEDS ORDERED: NALOXONE 0.4 MG/ML 1 ML VIAL IVP PRN (15:54)
[2022-04-01] MEDS ORDERED: NITROGLYCERIN SL TABS 0.4 MG TAB SUBLINGUAL PRN (16:04)
--- NOTE | 2022-04-01 16:41 | P.HPIM ---
History of Present Illness H&P Date: 04/01/22 Chief Complaint: chest tightness and uncontrolled hypertension History of Presenting Illness: Patient is a very pleasant 61-year-old male with a past medical history of hypertension. Patient presented to the emergency department with a chief complaint of uncontrolled hypertension. Patient reports he awoke this morning with some chest tightness and went to his PCP for a checkup for [employer] as previously scheduled. Patient reports upon arrival to his checkup his blood pressure was elevated at 180/120. Patient reports he was instructed he needed to go to the emergency department for evaluation secondary to this uncontrolled blood pressure accompanied by the tightness in his chest. Pt reports he has been experiencing intermittent shortness of breath with exertion and occasionally at rest off and on over the past year but states chest tightness just began this morning. Patient states this chest tightness was relieved shortly after the nitroglycerin patch was placed on his chest in the emergency department. patient denies having any headache, lightheadedness, dizziness, changes in his vision or hearing, palpitations, abdominal pain, nausea, vomiting, diaphoresis, or experiencing any numbness/tingling/weakness/swelling in his extremities. Patient denies ever monitoring his blood pressure at home. Patient reports he underwent evaluation by a electrolysis investigator, Dr. Ramirez about a urinary half ago and underwent an exercise stress test which was negative. in the emergency department, patient underwent full evaluation. EKG was completed revealing sinus bradycardia at 55 bpm with T-wave inversion in inferior leads III and aVF (T-wave inversion unchanged as it was previously present on EKG obtained 10/28/2014). Chest x-ray revealing cardiomegaly negative for acute cardiopulmonary process. CBC, coags, and CMP were unremarkable. D-dimer was negative at 0.37. Troponin also negative at less than 0.012. Covid PCR negative. Patient admitted under our services with consultation to cardiology. Review of systems: Pertinent positives and negatives as discussed in HPI, a complete review of systems was performed and all other systems are negative. Physical exam: Vital signs reviewed and stable. General: Nontoxic, no distress and appears stated age. Derm: Skin warm and dry, normal coloration for ethnicity. Head: Atraumatic, normocephalic and symmetric. Eyes: EOMs intact, no lid lag, and anicteric sclera Mouth: no lip lesions, mucus membranes moist Cardiovascular: regular rate and rhythm with normal S1S2, no murmur, positive posterior tibial pulses bilaterally, and cap refill < 2 seconds. Lungs: Respirations even, regular, and unlabored on room air. Lungs CTA bilaterally, no rhonchi, no rales, no wheezing, and no accessory muscle usage. Abdominal: soft, nontender to palpation, no guarding, no appreciable organom egaly Ext: ROM intact. No gross muscle atrophy, no edema, no contractures Neuro: Speech clear, face symmetrical and CN II-XII grossly intact with no noted focal neuro deficits Psych: Alert and oriented to person, place, time, and situation. Appropriate and pleasant affect. Assessment and Plan of Care: Chest pain, rule out acute coronary event Hypertensive urgency -Cardiology consult, appreciate further recommendations -Telemetry monitoring -Trend troponins -Cardiac diet, NPO at midnight -Patient started on daily aspirin and atorvastatin, metoprolol held at this time secondary to bradycardia. Patient to continue LUIS E inhibitor and Norvasc added on to optimize blood pressure management. -Lipid profile with a.m. labs. -Echocardiogram -Patient was educated on the importance of monitoring blood pressure at home and upon discharge will be educated on the importance of monitoring blood pressure daily and documenting findings in a log/journal all to ensure optimal blood pressure management can be achieved. The patient is admitted with an anticipated less than 2 midnight stay for evalua tion of chest tightness CODE STATUS: full code DVT prophylaxis: heparin Discussed with: patient and RN Anticipated discharge date: tomorrow Anticipated discharge place: home A total of 44 minutes was spent on the care of this complex patient more than 50% of the time was spent in counseling and care coordination. Past Medical History Past Medical History: CVA/TIA, GERD/Reflux, Hypertension, Syncope Additional Past Medical History / Comment(s): PICC line, peforated divericulitis with abdominal abscess, sepsis, arthritis. History of Any Multi-Drug Resistant Organisms: None Reported Past Surgical History: Cholecystectomy Additional Past Surgical History / Comment(s): sigmoid colectomy with colostomy- 10/24/14 colostomy reversal, anal fissure repair, nasal polyps removed, colon polyps, diverticultis Past Anesthesia/Blood Transfusion Reactions: Motion Sickness Additional Past Anesthesia/Blood Transfusion Reaction / Comment(s): SPINAL HEADACHE IN PAST Past Psychological History: No Psychological Hx Reported Smoking Status: Never smoker Past Alcohol Use History: None Reported Past Drug Use History: Marijuana - Past Family History Father Family Medical History: Hyperlipidemia, Myocardial Infarction ([place]) Additional Family Medical History / Comment(s): 5 VESSEL BYPASS Mother Family Medical History: Hypertension Additional Family Medical History / Comment(s): OBESITY Brother(s) Family Medical History: Hypertension Additional Family Medical History / Comment(s): cardiac sx Medications and Allergies Home Medications Medication Instructions Recorded Confirmed Type ramipriL [Altace] 10 mg PO DAILY 01/20/15 04/01/22 History Allergies Allergy/AdvReac Type Severity Reaction Status Date / Time Iodinated Contrast Media Allergy Rash/Hives Verified 04/01/22 12:00 [Iodinated Contrast Media - & Fever IV Dye] sulfamethoxazole Allergy Rash/Hives Verified 04/01/22 12:00 [From Bactrim] trimethoprim [From Bactrim] Allergy Rash/Hives Verified 04/01/22 12:00 Physical Exam Vitals: Vital Signs Temp Pulse Resp BP Pulse Ox 04/01/22 15:08 60 18 142/90 98 04/01/22 11:56 97.5 F L 59 L 20 168/97 98 Intake and Output 04/01/22 04/01/22 04/01/22 06:59 14:59 22:59 Other: Weight 97.522 kg Results CBC & Chem 7: 04/01/22 14:47 04/01/22 14:47
[2022-04-01] MEDS: amLODIPine 5 MG TAB PO SCH (17:18)
[2022-04-01] MEDS: HEPARIN SODIUM,PORCINE/PF 5,000 UNIT/0.5 ML SYRINGE SQ SCH (17:18)
[2022-04-01] MEDS ORDERED: ATORVASTATIN 80 MG TAB PO SCH (21:00)
[2022-04-01] MEDS ORDERED: METOPROLOL TARTRATE 25 MG TAB PO SCH (21:00)
[2022-04-01] MEDS: NITROGLYCERIN OINT 1 INCH/GM PACKET TOPICAL SCH (21:20)
[2022-04-02] MEDS: NITROGLYCERIN OINT 1 INCH/GM PACKET TOPICAL SCH ×2 (01:31→08:48)
[2022-04-02] MEDS: HEPARIN SODIUM,PORCINE/PF 5,000 UNIT/0.5 ML SYRINGE SQ SCH ×2 (01:32→11:52)
[2022-04-02 07:31] LABS: Basophils % (A) 1 %; Eosinophils # (A) 0.2 k/uL (0-0.7); Eosinophils % (A) 3 %; HCT 43.8 % (39.0-53.0); HGB 14.1 gm/dL (13.0-17.5); Lymphocytes # (A) 1.4 k/uL (1.0-4.8); Lymphocytes % (A) 23 %; MCH 28.9 pg (25.0-35.0); MCHC 32.1 g/dL (31.0-37.0); MCV 90.1 fL (80.0-100.0); Mean Platelet Volume 9.6; Monocytes # (A) 0.3 k/uL (0-1.0); Monocytes % (A) 6 %; Neutrophils # (A) 3.9 k/uL (1.3-7.7); Neutrophils % (A) 66 %; Platelet Count 170 k/uL (150-450); RBC 4.87 m/uL (4.30-5.90); RDW 12.9 % (11.5-15.5); WBC 5.9 k/uL (3.8-10.6)
[2022-04-02 08:02] LABS: African American GFR (CKD) 77 (>60 ml/min/1.73 sqM); Anion Gap 7 mmol/L; Blood Urea Nitrogen 15 mg/dL (9-20); Calcium 8.7 mg/dL (8.4-10.2); Carbon Dioxide 26 mmol/L (22-30); Chloride 104 mmol/L (98-107); Glucose 102 mg/dL (74-99); Non-African American GFR(CKD) 66 (>60 ml/min/1.73 sqM); Potassium 4.7 mmol/L (3.5-5.1); Sodium 137 mmol/L (137-145)
[2022-04-02 08:50] VITALS: RESP 17
[2022-04-02] MEDS ORDERED: lisinopriL 20 MG TAB PO SCH ×3 (09:00→21:00)
[2022-04-02] MEDS ORDERED: ASPIRIN 81 MG PO SCH (09:00)
[2022-04-02 10:49] LABS: Chol/HDL Ratio 2.85 Ratio; LDL Cholesterol,Calculated 110.4 mg/dL (0.0-131.0); VLDL Calculation 18.68 mg/dL (5.00-40.00)
--- NOTE | 2022-04-02 10:55 | CA ---
Transthoracic Echo Report Name: Brent Galloway Age: 61 Gender: M : 1960 Exam Date: 04/02/2022 09:21 Exam Location: [facility] Ht (in): 67 Wt (lb): 215 Ordering Physician: Gokul Monique Attending/Referring Phys: Grinding Wheel Facer Neda Andujar RDCS Procedure CPT: Indications: Chest Pain Cardiac Hx: Technical Quality: Good Contrast 1: Total Dose (mL): Contrast 2: Total Dose (mL): MEASUREMENTS (Male / Female) Normal Values 2D ECHO LV Diastolic Diameter PLAX 4.7 cm 4.2 - 5.9 / 3.9 - 5.3 cm LV Systolic Diameter PLAX 3.2 cm IVS Diastolic Thickness 1.6 cm 0.6 - 1.0 / 0.6 - 0.9 cm LVPW Diastolic Thickness 1.4 cm 0.6 - 1.0 / 0.6 - 0.9 cm LV Relative Wall Thickness 0.6 RV Internal Dim ED PLAX 3.3 cm LA Systolic Diameter LX 3.3 cm 3.0 - 4.0 / 2.7 - 3.8 cm LA Volume 34.9 cm??? 18 - 58 / 22 - 52 cm??? M-MODE Aortic Root Diameter MM 3.9 cm MV E Point Septal Separation 0.8 cm AV Cusp Separation MM 2.3 cm DOPPLER AV Peak Velocity 74.0 cm/s AV Peak Gradient 2.2 mmHg MV Area PHT 4.0 cm??? Mitral E Point Velocity 76.4 cm/s Mitral A Point Velocity 84.4 cm/s Mitral E to A Ratio 0.9 MV Deceleration Time 188.1 ms MV E' Velocity 5.1 cm/s Mitral E to MV E' Ratio 14.9 TR Peak Velocity 216.4 cm/s TR Peak Gradient 18.7 mmHg Right Ventricular Systolic Press 23.7 mmHg FINDINGS Left Ventricle Left ventricular ejection fraction is estimated at 55-60 %. Left ventricular cavity size normal. Moderate concentric left ventricular hypertrophy. Right Ventricle Mild right ventricular dilatation. Right ventricular systolic pressure within normal limits. Right Atrium Normal right atrial size. Left Atrium Normal left atrial size. No evidence for an atrial septal defect. Mitral Valve Mitral valve thickened. Trace mitral regurgitation. Aortic Valve Trileaflet aortic valve. No aortic valve stenosis or regurgitation. Tricuspid Valve Mild tricuspid regurgitation. Pulmonic Valve Trace pulmonic regurgitation. Pericardium Normal pericardium. No pericardial effusion. Aorta Mild aortic dilatation at the level of the sinuses of valsalva 39 mm CONCLUSIONS Normal left ventricular dimension and systolic function Aortic sclerosis without stenosis or insufficiency Mitral annular calcifications with mild MR Previewed by: Dr. Kevin Barfield MD (Electronically Signed) Final Date: 02 April 2022 10:54
--- NOTE | 2022-04-02 11:33 | P.CRDCN ---
History of Present Illness Consult date: 04/02/22 History of present illness: HISTORY OF PRESENT ILLNESS: This is a 61-year-old male with a past medical history significant for hypertension. Patient follows in the office with Dr. Mccarthy but has not been seen since September 2020. We have been asked to see the patient in consultation for chest pain. Patient examined at the bedside. Patient states yesterday he had someone from [employer] at his house for a physical/checkup. He states his blood pressure was found to be elevated at 180/120. Patient states he called his PCP and was instructed to come to the emergency room. Patient's blood pressure has since improved. Patient currently denies having any chest pain or pressure. He denies shortness of breath. Patient did have a nuclear stress test in August 2020 at the office which was read as abnormal with a mild reversible ischemia involving the inferior basal segment. Per cardiology office records, discussion was had for possible cardiac catheterization and would let tax staff accountant know his discussion at his next office visit. However when discussing this with the patient he has no recollection of an abnormal stress test or a discussion regarding a cardiac catheterization in the past. * EKG reveals sinus mechanism with T-wave inversions in inferior leads, similar to previous EKG * Chest xray cardiomegaly without acute pulmonary process * Laboratory data: WBC 5.9. Hemoglobin 14.1. Platelet count 170. D-dimer 0.37. Sodium 137. Potassium 4.7. BUN 15. Creatinine 1.18. Troponin negative 3. * Current home cardiac medications include ramipril 10 mg daily * Most recent echocardiogram obtained in August 2020 revealed ejection fraction 55%, moderate LVH, mild tricuspid regurgitation REVIEW OF SYSTEMS: At the time of my exam: CONSTITUTIONAL: Denies fever or chills. HEENT: Denies blurred vision, vision changes, or eye pain. Denies hemoptysis CARDIOVASCULAR: Denies chest pain. Denies orthopnea. Denies PND. Denies palpitations RESPIRATORY: Denies shortness of breath. GASTROINTESTINAL: Denies abdominal pain. Denies nausea or vomiting. HEMATOLOGIC: Denies bleeding disorders. GENITOURINARY: Denies any blood in urine. SKIN: Denies pruitis. Denies rash. PHYSICAL EXAM: VITAL SIGNS: Reviewed. GENERAL: Well-developed in no acute distress. HEENT: Head is normocephalic. Pupils are equal, round. Sclerae anicteric. Mucous membranes of the mouth are moist. Neck supple. No JVD or thyromegaly LUNGS: Respirations even and unlabored. Lungs essentially clear to auscultation bilaterally. HEART: Regular rate and rhythm. S1 and S2 heard. ABDOMEN: Soft. Nondistended. Nontender. EXTREMITIES: Normal range of motion. No clubbing or cyanosis. Peripheral pulses intact. No lower extremity edema NEUROLOGIC: Awake and alert. Oriented x 3. ASSESSMENT: Hypertension urgency Chest pain, troponin negative x 3 History of abnormal stress test in 2020 PLAN: An acute coronary event has been ruled out Obtain 2D echo to assess cardiac structure and function Continue lisinopril. Change dosing to BID per Dr. Kerr Continue Norvasc No beta marianna at this time secondary to baseline bradycardia Patient to undergo stress echocardiogram today to assess for ischemia Further recommendations pending patient's course Nurse practitioner note has been reviewed by physician. Signing provider agrees with the documented findings, assessment, and plan of care. Past Medical History Past Medical History: CVA/TIA, GERD/Reflux, Hypertension, Syncope Additional Past Medical History / Comment(s): PICC line, peforated divericulitis with abdominal abscess, sepsis, arthritis. History of Any Multi-Drug Resistant Organisms: None Reported Past Surgical History: Cholecystectomy Additional Past Surgical History / Comment(s): sigmoid colectomy with colostomy- 10/24/14 colostomy reversal, anal fissure repair, nasal polyps removed, colon polyps, diverticultis Past Anesthesia/Blood Transfusion Reactions: Motion Sickness Additional Past Anesthesia/Blood Transfusion Reaction / Comment(s): SPINAL HEADACHE IN PAST Past Psychological History: No Psychological Hx Reported Additional Psychological History / Comment(s): Anxiety and Depression AFTER surgery r/t colostomy, IMPROVED. PT HAS'NT WORKED IN LAST few MONTHS D/T BOWEL SURGURIES. LIVES WITH HIS GIRLFRIEND OF 6 YEARS-RENETTA and a 10 yr old adopted son. 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 DENIES HAVING ANY OUTSIDE SERVICES IN THE HOME. Smoking Status: Current some day smoker, Never smoker Past Alcohol Use History: None Reported Additional Past Alcohol Use History / Comment(s): QUIT 3 YEARS AGO BUT USED TO DRINK 1-2 (24 OZ CANS BEER). Patient denies any medical marijuana, marijuana or street drug use. Patient worked in the [employer] department. He is currently living athome with a girlfriend and 10 yr old adopted son. There are cats in the home. He has had no service. He has traveled in the past to [place] and on the [facility]. No recent travel. Past Drug Use History: Marijuana - Past Family History Father Family Medical History: Hyperlipidemia, Myocardial Infarction ([place]) Additional Family Medical History / Comment(s): 5 VESSEL BYPASS Mother Family Medical History: Hypertension Additional Family Medical History / Comment(s): OBESITY Brother(s) Family Medical History: Hypertension Additional Family Medical History / Comment(s): cardiac sx Medications and Allergies Home Medications Medication Instructions Recorded Confirmed Type ramipriL [Altace] 10 mg PO DAILY 01/20/15 04/01/22 History Allergies Allergy/AdvReac Type Severity Reaction Status Date / Time Iodinated Contrast Media Allergy Rash/Hives Verified 04/01/22 12:00 [Iodinated Contrast Media - & Fever IV Dye] sulfamethoxazole Allergy Rash/Hives Verified 04/01/22 12:00 [From Bactrim] trimethoprim [From Bactrim] Allergy Rash/Hives Verified 04/01/22 12:00 Physical Exam Vitals: Vital Signs Temp Pulse Pulse Resp BP BP BP 04/02/22 08:30 97.6 F 78 17 153/78 04/02/22 01:27 97.6 F 68 16 107/61 04/01/22 20:30 97.6 F 70 17 163/78 04/01/22 17:13 76 18 140/93 04/01/22 15:08 60 18 142/90 04/01/22 11:56 97.5 F L 59 L 20 168/97 Pulse Ox 04/02/22 08:30 98 04/02/22 01:27 95 04/01/22 20:30 96 04/01/22 17:13 96 04/01/22 15:08 98 04/01/22 11:56 98 Intake and Output 04/01/22 04/02/22 04/02/22 22:59 06:59 14:59 Other: # Voids 1 Weight 97.522 kg Results 04/02/22 06:40 04/02/22 06:40 Cardiac Enzymes 10/06/22 10/06/22 10/06/22 Range/Units 14:47 14:47 18:11 AST 29 (17-59) U/L Troponin I <0.012 <0.012 (0.000-0.034) ng/mL 04/01/22 Range/Units 21:03 AST (17-59) U/L Troponin I <0.012 (0.000-0.034) ng/mL Coagulation 04/01/22 Range/Units 14:47 PT 10.2 (9.0-12.0) sec APTT 24.9 (22.0-30.0) sec Lipids 04/02/22 Range/Units 06:40 Triglycerides 93.40 (0.00-149.00) mg/dL Cholesterol 199.00 (0.00-200.00) mg/dL HDL Cholesterol 69.90 H (40.00-60.00) mg/dL Cholesterol/HDL Ratio 2.85 Ratio CBC 04/01/22 04/02/22 Range/Units 14:47 06:40 WBC 5.8 5.9 (3.8-10.6) k/uL RBC 5.03 4.87 (4.30-5.90) m/uL Hgb 14.6 14.1 (13.0-17.5) gm/dL Hct 44.9 43.8 (39.0-53.0) % Plt Count 182 170 (150-450) k/uL Comprehensive Metabolic Panel 04/01/22 04/02/22 Range/Units 14:47 06:40 Sodium 138 137 (137-145) mmol/L Potassium 4.0 4.7 (3.5-5.1) mmol/L Chloride 106 104 (98-107) mmol/L Carbon Dioxide 23 26 (22-30) mmol/L BUN 16 15 (9-20) mg/dL Creatinine 0.98 1.18 (0.66-1.25) mg/dL Glucose 93 102 H (74-99) mg/dL Calcium 9.2 8.7 (8.4-10.2) mg/dL AST 29 (17-59) U/L ALT 32 (4-49) U/L Alkaline Phosphatase 64 (38-126) U/L Total Protein 6.7 (6.3-8.2) g/dL Albumin 4.3 (3.5-5.0) g/dL Current Medications Generic Name Dose Route Start Last Admin Trade Name Freq PRN Reason Stop Dose Admin Acetaminophen 650 mg 04/01/22 15:54 Acetaminophen Tab 325 Mg Tab PO Q6HR PRN Mild Pain or Fever > 100.5 Amlodipine Besylate 5 mg 04/01/22 16:00 04/01/22 17:18 Amlodipine 5 Mg Tab PO 5 mg DAILY NUSRAT Administration Aspirin 81 mg 04/02/22 09:00 Aspirin 81 Mg PO DAILY NUSRAT Atorvastatin Calcium 80 mg 04/01/22 21:00 04/01/22 21:35 Atorvastatin 80 Mg Tab PO 80 mg HS NUSRAT Administration Heparin Sodium (Porcine) 5,000 unit 04/01/22 16:00 04/02/22 01:32 Heparin Sodium,Porcine/Pf 5,000 Unit/0.5 Ml Syringe SQ 5,000 unit Q8HR NUSRAT Administration Lisinopril 20 mg 04/02/22 10:00 Lisinopril 20 Mg Tab PO BID NUSRAT Naloxone HCl 0.2 mg 04/01/22 15:54 Naloxone 0.4 Mg/Ml 1 Ml Vial IVP Q2M PRN Opioid Reversal Nitroglycerin 0.4 mg 04/01/22 16:04 Nitroglycerin Sl Tabs 0.4 Mg Tab SUBLINGUAL Q5M PRN Chest Pain Intake and Output 04/01/22 04/02/22 04/02/22 22:59 06:59 14:59 Other: # Voids 1 Weight 97.522 kg 04/02/22 06:40 04/02/22 06:40
--- NOTE | 2022-04-02 11:45 | CA ---
Stress Echo Report Brent Galloway Age: 61 Gender: M : 1960 Exam Date: 04/02/2022 10:20 Exam Location: [facility] Ht (in): 67 Wt (lb): 215 Ordering Physician: Kira Yu Referring Physician: [id number] Medical Librarian: Erica Evans RDCS Technologist Procedure CPT: Indication: uncontrolled BP ICD-9 Codes: Rhythm: Patient History: Cardiac Medications: Medications in past 24 hours: Contrast: Stress Results Protocol: Chavez Total dose(mL): Exercise Duration (min:sec): 8:[address] Depression (mm): Angina Score: Elizabeth Score: METS: 9.5 Resting HR: 94 Resting BP: 160 / 101 Peak HR: 163 Peak BP: 232 / 96 Max Predicted HR: 159 103 % Max Predicted HR Target HR: 135 Double Product: [id number] Stress Summary: BP Response: Reason for Termination: Cardiac Symptoms: ECG Analysis Resting ECG: Stress ECG: Arrhythmia: Echo Analysis Resting Echo: Peak Echo Analysis: MEASUREMENTS (Male/Female) Normal Values CONCLUSIONS Excellent exercise tolerance. The patient exercised for 8 minutes on Chavez protocol Excellent augmentation in the blood pressure and heart rate in response to exercise Normal EKG in response to exercise Normal echocardiogram in response to exercise Essentially normal stress test for the patient Dr. Kevin Barfield MD (Electronically Signed) Final Date: 02 April 2022 11:44
[2022-04-02] MEDS: amLODIPine 5 MG TAB PO SCH (11:57)
--- NOTE | 2022-04-02 13:41 | P.DS ---
Providers Date of admission: 04/01/22 16:06 Expected date of discharge: 04/02/22 Attending physician: Joe Vallejo MD Consults: 04/01/22 15:55 Consult Physician Routine Consulting Provider: [facility] Consult Reason/Comments: Chest Pain Do you want consulting provider notified?: Yes Primary care physician: [facility] Course: Discharge Diagnosis: Chest pain, acute coronary event ruled out. Troponins trended all negative. D- dimer negative. EKG revealed sinus bradycardia 55 bpm with T-wave inversions in inferior leads 3 and aVF. Echocardiogram completed revealing normal EF of 55- 60%. Cardiology evaluated and took the patient for stress echo. Stress test was negative revealing excellent exercise tolerance with excellent augmentation and the blood pressure and heart rate in response to exercise with normal EKG response and normal echocardiogram response. Hypertensive urgency. Patient was started on amlodipine 5 mg daily and Ramipril was discontinued and patient started on lisinopril 20 mg twice daily. Patient was educated on the importance of monitoring blood pressure at home daily and documenting findings in a log/journal to bring with him to his next doctor's appointment for review and therefore medication changes may be made as needed to ensure optimal blood pressure management can be achieved. Hospital Course: Patient is a very pleasant 61-year-old male with a past medical history of hypertension. Patient presented to the emergency department with a chief complaint of uncontrolled hypertension. Patient reports he awoke this morning with some chest tightness and went to his PCP for a checkup for [employer] as previously scheduled. Patient reports upon arrival to his checkup his blood pressure was elevated at 180/120. Patient reports he was instructed he needed to go to the emergency department for evaluation secondary to this uncontrolled blood pressure accompanied by the tightness in his chest. Pt reports he has been experiencing intermittent shortness of breath with exertion and occasionally at rest off and on over the past year but states chest tightness just began this morning. Patient states this chest tightness was relieved shortly after the nitroglycerin patch was placed on his chest in the emergency [facility]. patient denies having any headache, lightheadedness, dizziness, changes in his vision or hearing, palpitations, abdominal pain, nausea, vomiting, diaphoresis, or experiencing any numbness/tingling/weakness/swelling in his extremities. Patient denies ever monitoring his blood pressure at home. Patient reports he underwent evaluation by a suction plate roller hand, Dr. Ramirez about a urinary half ago and underwent an exercise stress test which was negative. in the emergency department, patient underwent full evaluation. EKG was completed revealing sinus bradycardia at 55 bpm with T-wave inversion in inferior leads III and aVF (T-wave inversion unchanged as it was previously present on EKG obtained 10/28/2014). Chest x-ray revealing cardiomegaly negative for acute cardiopulmonary process. CBC, coags, and CMP were unremarkable. D-dimer was negative at 0.37. Troponin also negative at less than 0.012. Covid PCR negative. Patient admitted under our services with consultation to cardiology. Troponins trended all negative at less than 0.0123 draws. Lipid profile unremarkable and hemoglobin A1c of 5.6%. Patient was started on amlodipine 5 mg daily and Ramipril was discontinued and patient started on lisinopril 20 mg twice daily. Echocardiogram completed revealing normal EF of 55-60%. Cardiology evaluated and took the patient for stress echo. Stress test was negative revealing excellent exercise tolerance with excellent augmentation and the blood pressure and heart rate in response to exercise with normal EKG response and normal echocardiogram response. Patient remains free from any reports of chest pain and since Nitropaste was placed in the emergency department. Again patient was started on amlodipine and lisinopril. He is medically stable for discharge at this time. Patient to follow-up with PCP in 1-2 days and with cardiology in 1-2 weeks. Physical exam: Vital signs reviewed and stable. General: Nontoxic, no distress and appears stated age. Derm: Skin warm and dry, normal coloration for ethnicity. Head: Atraumatic, normocephalic and symmetric. Eyes: EOMs intact, no lid lag, and anicteric sclera Mouth: no lip lesions, mucus membranes moist Cardiovascular: regular rate and rhythm with normal S1S2, no murmur, positive posterior tibial pulses bilaterally, and cap refill < 2 seconds. Lungs: Respirations even, regular, and unlabored on room air. Lungs CTA bilaterally, no rhonchi, no rales, no wheezing, and no accessory muscle usage. Abdominal: soft, nontender to palpation, no guarding, no appreciable orga nomegaly Ext: ROM intact. No gross muscle atrophy, no edema, no contractures Neuro: Speech clear, face symmetrical and CN II-XII grossly intact with no noted focal neuro deficits Psych: Alert and oriented to person, place, time, and situation. Appropriate and pleasant affect. A total of 35 minutes of time were spent preparing this complex discharge summary. Pt was discharged on 04/02/22 at 1:35 PM. I reviewed the documentation as provided by the JOSE above, who is the original author of this note. I agree with the documented assessment and plan, with the following changes: none Patient Condition at Discharge: Stable Plan - Discharge Summary Discharge Rx Participant: Yes New Discharge Prescriptions: New lisinopriL [Zestril] 20 mg PO BID 30 Days #60 tab amLODIPine [Norvasc] 5 mg PO DAILY 30 Days #30 tab Discontinued ramipriL [Altace] 10 mg PO DAILY Discharge Medication List amLODIPine [Norvasc] 5 mg PO DAILY 30 Days #30 tab 04/02/22 [Rx] lisinopriL [Zestril] 20 mg PO BID 30 Days #60 tab 04/02/22 [Rx] Follow up Appointment(s)/Referral(s): Maggie Kerr MD [STAFF PHYSICIAN] - 1 Week (office will call you with appt. time) Robert Goldstein DO [Primary Care Provider] - 1-2 days (April 06 9:20) Patient Instructions/Handouts: Chest Pain (DC), Hypertension (DC) Activity/Diet/Wound Care/Special Instructions: Activity: As tolerated. Take breaks as needed. Diet: Heart healthy and carb consistent diet. Avoid salts, or foods with hidden salts such as canned or boxed foods and frozen dinners. Extra salt makes your heart work harder and traps the fluid in your body for longer. Special Instructions: Take all of your medications as directed and remember to keep all of your doctor's appointments and follow-up as needed. It is important to start taking her blood pressure at home. I recommend taking your blood pressure every day and documenting these findings in a daily log/sternal to bring with you to your next doctor's appointments to ensure adequate dosing of the medications can be initiated to best optimize your blood pressure control. Thank you for allowing us to participate in your care, it was truly a pleasure having you for our patient!!! Discharge Disposition: HOME SELF-CARE
[2022-04-02 14:01] VITALS: BP 147/85; PULSE 86; TEMP 97.9
[2022-04-02] MEDS ORDERED: ATORVASTATIN 40 MG TAB PO SCH (21:00)
== END 2022-04-02 14:15 | disposition home or self-care (01) ==
LOC: EC 10:19 → 6NMEDSUR 16:06 → 3SCARD 19:16
PROVIDERS: ADMIT Internal Medicine; ATTEND Internal Medicine
DX: I16.0 Hypertensive urgency (principal); R07.89 Other chest pain; I11.9 Hypertensive heart disease without heart failure; K21.9 Gastro-esophageal reflux disease without esophagitis; Z20.822 Contact with and (suspected) exposure to COVID-19; Z86.73 Personal history of transient ischemic attack (TIA), and cerebral infarction without residual deficits; Z86.19 Personal history of other infectious and parasitic diseases; M19.90 Unspecified osteoarthritis, unspecified site; Z87.19 Personal history of other diseases of the digestive system; Z90.49 Acquired absence of other specified parts of digestive tract; Z98.890 Other specified postprocedural states; Z82.49 Family history of ischemic heart disease and other diseases of the circulatory system; Z84.89 Family history of other specified conditions; Z79.899 Other long term (current) drug therapy; Z88.2 Allergy status to sulfonamides; Z91.041 Radiographic dye allergy status
CPT/HCPCS: 96372 ×2; 99285; 36415; 93005; 93306; 93351; 85379; 80061; 80053; 80048; 84443; 83735 ×2; 84484; 85025 ×2; 85610; 85730; 83036; 87635; 71046; G0378 ×3; J1644 ×2

== ENCOUNTER 2024-09-05 09:14 | Day surgery (SDC) | payer MEDICARE ==
--- NOTE | 2024-09-05 08:24 | P.GSHP ---
History of Present Illness H&P Date: 09/05/24 CHIEF COMPLAINT: Colon screen HISTORY OF PRESENT ILLNESS: The patient is a 64-year-old male who presents for colon screen. Lower endoscopy was offered for further evaluation and management. PAST MEDICAL HISTORY: Please see list. PAST SURGICAL HISTORY: Please see list. MEDICATIONS: Please see list. ALLERGIES: Please see list. SOCIAL HISTORY: No illicit drug use FAMILY HISTORY: No reports of Crohn disease or ulcerative colitis. REVIEW OF ORGAN SYSTEMS: CONSTITUTIONAL: No reports of fevers or chills. PHYSICAL EXAM: VITAL SIGNS: Stable GENERAL: Well-developed pleasant in no acute distress. HEENT: No scleral icterus. Extraocular movements grossly intact. Moist buccal mucosa. NECK: Supple without lymphadenopathy. CHEST: Unlabored respirations. Equal bilateral excursions. CARDIOVASCULAR: Regular rate and rhythm. Distal 2+ pulses. ABDOMEN: Soft, nontender, nondistended. MUSCULOSKELETAL: No clubbing, cyanosis, or edema. ASSESSMENT: 1. Colon screen. PLAN: 1. Recommend proceeding with a lower endoscopy Past Medical History Past Medical History: CVA/TIA, GERD/Reflux, Hypertension, Syncope Additional Past Medical History / Comment(s): perforated divericuliti with abdominal abscess - sepsis, arthritis, no residual effects from CVA 2013, hx. syncope since 2014 which occurred after colostomy reversal History of Any Multi-Drug Resistant Organisms: None Reported Past Surgical History: Cholecystectomy Additional Past Surgical History / Comment(s): sigmoid colectomy with colostomy- 10/24/14 colostomy reversal, anal fissure repair, nasal polyps removed, colon polyps, diverticultis Past Anesthesia/Blood Transfusion Reactions: Motion Sickness Additional Past Anesthesia/Blood Transfusion Reaction / Comment(s): SPINAL HEADACHE IN PAST Smoking Status: Never smoker - Past Family History Father Family Medical History: Hyperlipidemia, Myocardial Infarction ([place]) Additional Family Medical History / Comment(s): 5 VESSEL BYPASS Mother Family Medical History: Cancer, Hypertension Additional Family Medical History / Comment(s): OBESITY, breast cancer Brother(s) Family Medical History: Hypertension Additional Family Medical History / Comment(s): cardiac sx Medications and Allergies Home Medications Medication Instructions Recorded Confirmed Type lisinopriL [Zestril] 20 mg PO BID 30 Days #60 tab 04/02/22 09/04/24 Rx Cetirizine HCl [Zyrtec] 10 mg PO DAILY 09/04/24 09/04/24 History Sodium Chloride 5% Ophth Soln 1 drops BOTH EYES BID 09/04/24 09/04/24 History [Katy 128] amLODIPine [Norvasc] 5 mg PO BID 09/04/24 09/04/24 History Allergies Allergy/AdvReac Type Severity Reaction Status Date / Time Iodinated Contrast Media Allergy Rash/Hives Verified 09/04/24 10:27 [Iodinated Contrast Media - & Fever IV Dye] sulfamethoxazole Allergy Rash/Hives Verified 09/04/24 10:27 [From Bactrim] trimethoprim [From Bactrim] Allergy Rash/Hives Verified 09/04/24 10:27
[~2024-09-05 09:14] MED LIST: LACTATED RINGERS 1,000 ML IV SCH
[2024-09-05] MEDS: IV FLUID CONTINUATION 1,000 ML IV ONE (09:37)
[2024-09-05 09:48] VITALS: RESP 16; TEMP 97.4
[2024-09-05] MEDS ORDERED: PROPOFOL 10 MG/ML 20 ML VIAL IV ONE (10:22)
--- NOTE | 2024-09-05 10:42 | P.PCN ---
Date of Procedure: 09/05/24 Description of Procedure: PREOPERATIVE DIAGNOSIS: History of colon adenoma POSTOPERATIVE DIAGNOSIS: Severe constipation, poor prep Diverticulosis, scattered. Sigmoid colectomy OPERATION: Colonoscopy to the cecum, ileocecal valve and appendiceal orifice. SURGEON: Chanel Harper MD. ANESTHESIA: MAC. INDICATIONS: The patient is a 64-year-old male who presents with history of high risk colon polyps including diverticulosis. Last colonoscopy was 5 years ago. Benefits and risks were described and informed consent was obtained. DESCRIPTION OF PROCEDURE: The patient had undergone Sutab prep. The patient had been brought into the operating room and laid in the left lateral decubitus position. After adequate intravenous sedation, the rectum was examined with 2% lidocaine jelly. No external hemorrhoids were encountered. The rectal tone was within normal limits. No lesions were palpated in the rectal vault. The prep was poor with semisolid stool. An Olympus colonoscope was advanced until the cecum, ileocecal valve and appendiceal orifice but mucosa was lined with stool. Scattered diverticulosis was encountered. No colonic polyps were found. Limited diagnostic value due to poor prep the colon was desufflated. The patient had tolerated the procedure well. Withdrawal time was over 6 minutes. FINDINGS: Aronchick preparation quality scale 4+ (1-5) Internal hemorrhoids, grade 1 No external prolapsed hemorrhoids. No large colon mass over 3 cm identified however mucosa visualization limited due to poor prep RECOMMENDATIONS: Lower endoscopy in 1 year, August 2025 with 3-day prep Plan - Discharge Summary Discharge Rx Participant: No New Discharge Prescriptions: Continue lisinopriL [Zestril] 20 mg PO BID 30 Days #60 tab Cetirizine HCl [Zyrtec] 10 mg PO DAILY amLODIPine [Norvasc] 5 mg PO BID Sodium Chloride 5% Ophth Soln [Katy 128] 1 drops BOTH EYES BID Discharge Medication List lisinopriL [Zestril] 20 mg PO BID 30 Days #60 tab 04/02/22 [Rx] Cetirizine HCl [Zyrtec] 10 mg PO DAILY 09/04/24 [History] Sodium Chloride 5% Ophth Soln [Katy 128] 1 drops BOTH EYES BID 09/04/24 [History] amLODIPine [Norvasc] 5 mg PO BID 09/04/24 [History] Follow up Appointment(s)/Referral(s): Chanel Harper MD [STAFF PHYSICIAN] - As Needed Patient Instructions/Handouts: Diverticulosis Diet (GEN), Constipation (DC) Activity/Diet/Wound Care/Special Instructions: Repeat colonoscopy 1 year due to poor prep, 3-day prep advised Discharge Disposition: HOME SELF-CARE
[2024-09-05 10:59] VITALS: BP 116/78; PULSE 82
== END 2024-09-05 11:30 | disposition home or self-care (01) ==
LOC: ORWHC2ENDO 09:14
PROVIDERS: ATTEND Surgery Plastic and Reconstructive Surgery
DX: K57.30 Diverticulosis of large intestine without perforation or abscess without bleeding (principal); K64.0 First degree hemorrhoids; K21.9 Gastro-esophageal reflux disease without esophagitis; I10 Essential (primary) hypertension; F32.A Depression, unspecified; F41.9 Anxiety disorder, unspecified; Z86.0101 Personal history of adenomatous and serrated colon polyps; Z86.73 Personal history of transient ischemic attack (TIA), and cerebral infarction without residual deficits; Z90.49 Acquired absence of other specified parts of digestive tract; Z82.49 Family history of ischemic heart disease and other diseases of the circulatory system; Z83.49 Family history of other endocrine, nutritional and metabolic diseases; Z80.3 Family history of malignant neoplasm of breast; Z91.041 Radiographic dye allergy status; Z88.2 Allergy status to sulfonamides; Z88.1 Allergy status to other antibiotic agents; Z79.899 Other long term (current) drug therapy
CPT/HCPCS: 45378; J2704